=== PATIENT | male | born 1940 | race Caucasian/White ===

== ENCOUNTER 2023-02-07 20:38 | Emergency (ER) | payer MEDICARE, BC ==
[2023-02-07 23:30] LABS: #Neutrophils 6.3 10x3/uL (1.5-8.4); %Basophils 0.5 % (0.0-2.0); %Eosinophils 0.1 % (0.0-6.0); %Lymphocytes 11.7 % (18.0-47.0); %Monocytes 11.9 % (0.0-10.0); %Neutrophils 75.4 % (40.0-75.0); Hemoglobin 12.8 g/dL (13.5-17.5); Mean Corpuscular HGB CONC 33.7 g/dL (32.0-36.0); Mean Corpuscular Hemoglobin 28.8 pg (27.0-33.0); Mean Corpuscular Volume 85.6 fl (81.2-95.1); Mean Platelet Volume 10.6 fl (7.4-10.4); Platelet Count 183 10x3/uL (150-450); RBC Distribution Width 12.3 % (11.5-14.5); Red Blood Cell (RBC) Count 4.44 10x6/uL (4.32-5.72); White Blood Cell (WBC) Count 8.4 10x3/uL (3.5-10.5)
[2023-02-07 23:43] LABS: ALT (SGPT) 11 U/L (8-55); AST (SGOT) 18 U/L (5-34); Albumin 3.9 g/dL (3.4-4.8); Alkaline Phosphatase 72 U/L (40-110); Anion Gap 15 mmol/L (10-20); BUN (Urea Nitrogen) 10 mg/dL (8.4-25.7); Bilirubin, Total 0.6 mg/dL (0.2-1.2); Calc. Creatinine Clearance 0 mL/min (70-130); Calcium 9.5 mg/dL (7.8-10.44); Carbon Dioxide 24 mmol/L (23-31); Chloride 100 mmol/L (98-107); Estimated GFR 63; Globulin 2.4 g/dL (2.4-3.5); Glucose 114 mg/dL (83-110); Magnesium 1.7 mg/dL (1.6-2.6); Potassium 4.5 mmol/L (3.5-5.1); Protein, Total 6.3 g/dL (5.8-8.1); Sodium 134 mmol/L (136-145)
[2023-02-07 23:49] LABS: Troponin I Less than 0.010 ng/mL (< 0.028)
== END 2023-02-08 05:41 | disposition short-term general hospital (02) ==
LOC: CSHERS 20:38
DX: R55 Syncope and collapse (principal); E78.00 Pure hypercholesterolemia, unspecified; J45.909 Unspecified asthma, uncomplicated
CPT/HCPCS: 70450; 70498; 71045; 80053; 83605; 83735; 84484; 85025; 93005

== ENCOUNTER 2023-05-14 16:44 | Emergency (ER) | payer MEDICARE, BC | END 2023-05-14 17:12 | disposition home or self-care (01) | LOC: CSHERS 16:44 | DX: L71.9 Rosacea, unspecified (principal) | CPT/HCPCS: 99282 ==